=== PATIENT | male | born 2000 | race Two or more races ===

== ENCOUNTER 2019-10-30 09:10 | Emergency (ER) | payer SELFPAY ==
[~2019-10-30] VITALS: Ht 160 cm; Wt 65.0 kg
[2019-10-30 09:46] VITALS: BP 120/76
--- NOTE | 2019-10-30 09:57 | PHYS DOC ---
General Adult EDM: Chief Complaint: EYE PROBLEMS HPI: HPI: Patient is a 19-year-old otherwise healthy male who presents with deteriorating visual acuity over the last several months. He states is become even worse over the last 1 to 2 months. He says he was wearing glasses but they are not really helping now. He has not been to an automotive service director. He just recently moved here from [place]. [] Review of Systems: Review of Systems: Constitutional: Denies fever or chills. [] Eyes: Per HPI [] Neurologic: Denies headache, focal weakness or sensory changes. [] Psychiatric: Denies depression or anxiety. [] Heart Score: Risk Factors: Risk Factors: DM, Current or recent (<one month) smoker, HTN, HLP, family history of CAD, obesity. Risk Scores: Score 0 - 3: 2.5% MACE over next 6 weeks - Discharge Home Score 4 - 6: 20.3% MACE over next 6 weeks - Admit for Clinical Observation Score 7 - 10: 72.7% MACE over next 6 weeks - Early Invasive Strategies Allergies: Allergies: Allergies Coded Allergies Type Severity Reaction Last Updated Verified No Known Drug Allergies 10/30/19 No Physical Exam: PE: Constitutional: Well developed, well nourished, no acute distress, non-toxic appearance. [] HENT: Normocephalic, atraumatic, bilateral external ears normal, oropharynx moist, no oral exudates, nose normal, OU visual acuity was 20/70 OS 20/200 OD 20/200. [] Eyes: PERRLA, EOMI, conjunctiva normal, no discharge, no pain with ocular compression. [] Neck: Normal range of motion, no tenderness, supple, no stridor. [] Cardiovascular:Heart rate regular rhythm, no murmur [] EKG: EKG: [] Radiology/Procedures: Radiology/Procedures: [] Course & Med Decision Making: Course & Med Decision Making Pertinent Labs and Imaging studies reviewed. (See chart for details) [This patient was deemed nonemergent and given that he is a self-pay will be screened out.] Dragon Disclaimer: Dragon Disclaimer: This electronic medical record was generated, in whole or in part, using a voice recognition dictation system. Departure Departure Impression: Primary Impression: Reduced visual acuity Patient Instructions: Visual Disturbances Additional Instructions: You need to follow with a local automotive service director at your convenience as he will be able to evaluate your eyes and fit you with the proper prescription for eyeglasses RHETT ABAD DO October 30, 2019 09:57
== END 2019-10-30 10:01 | disposition home or self-care (01) ==
LOC: ER 09:10
DX: H54.7 Unspecified visual loss (principal)
CPT/HCPCS: 99282